=== PATIENT | female | born 1995 | race Caucasian/White ===

== ENCOUNTER 2021-03-25 11:22 | Emergency (ER) | payer OTHER ==
[~2021-03-25] VITALS: Ht 157.5 cm; Wt 62.1 kg
[2021-03-25 11:34] VITALS: BP 118/75
[2021-03-25] MEDS ORDERED: oxyCODONE/APAP 5/325 MG 1 TAB TAB PO ONE (12:05)
--- NOTE | 2021-03-25 12:31 | NUR ---
PT TAKEN TO US VIA W/C
[2021-03-25 12:38] LABS: BASOPHILS # (AUTO) 0.6 K/uL (0.00-0.22); EOSINOPHILS % (AUTO) 0.5 % (0.0-4.0); HEMATOCRIT 42.2 % (36-48); HEMOGLOBIN 14.4 g/dL (12.0-16.0); LYMPHOCYTES % (AUTO) 14.2 % (20.5-51.1); MEAN CORPUSCULAR HEMOGLOBIN 31 pg (27-31); MEAN CORPUSCULAR HGB CONC 34 g/dL (33-37); MEAN CORPUSCULAR VOLUME 90.7 fL (80-94); MONOCYTES # (AUTO) 0.5 K/uL (0.8-1.0); MONOCYTES % (AUTO) 7.1 % (1.7-9.3); NEUTROPHILS % (AUTO) 70.3 % (42.2-75.2); PLATELET COUNT (AUTO) 323 K/uL (140-450); RED BLOOD CELL COUNT(AUTO) 4.65 MIL/uL (4.20-5.40); RED CELL DISTRIBUTION WIDTH 12.6 % (11.6-13.7); WHITE BLOOD COUNT (AUTO) 7.2 K/uL (4.8-10.8)
[2021-03-25 12:43] LABS: BASOPHILS % (AUTO) 7.9 % (0.0-2.0)
[2021-03-25] MEDS ORDERED: traMADol 50 MG TAB PO ONE (13:05)
[2021-03-25 13:07] LABS: ALBUMIN 3.9 g/dL (3.4-5.0); CREATININE 0.8 mg/dL (0.6-1.3); POTASSIUM 3.4 mmol/L (3.5-5.1)
--- NOTE | 2021-03-25 13:25 | NUR ---
PT CAN'T PROVIDE URINE AT THIS TIME.
[2021-03-25 13:34] LABS: ANION GAP 16.3 (8-16); CARBON DIOXIDE 24.1 mmol/L (21-32); TOTAL BILIRUBIN 0.5 mg/dL (0.0-1.0)
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
[2021-03-25] MEDS ORDERED: DOCU250S85 PO (14:53)
--- NOTE | 2021-03-25 15:52 | NUR ---
REPORTED TO [facility]: [facility].
--- NOTE | 2021-03-25 15:52 | NUR ---
Shital alvarado in [facility] - 03/25/21 at 1634 by [email or web address] REPORTED TO S[place]: PD [facility].
--- NOTE | 2021-03-25 16:33 | NUR ---
[place] PD AT TRIAGE ROOM.
[2021-03-25 17:27] LABS: APPEARANCE,URINE CLEAR (CLEAR); BILIRUBIN,URINE NEGATIVE (NEGATIVE); BLOOD, URINE NEGATIVE (NEGATIVE); COLOR,URINE YELLOW (YELLOW); LEUKOCYTE ESTERASE ,URINE 3+ (NEGATIVE); NITRITE, URINE POSITIVE (NEGATIVE); PH,URINE 7.5 (5.0-9.0); UGLUCOSE NEGATIVE (NEGATIVE)
[2021-03-25 17:38] LABS: WBC,URINE 60-80 /HPF (0-5)
[2021-03-25 17:58] VITALS: BP 103/62
[2021-03-25] MEDS ORDERED: NITR100C7 PO (17:58)
--- NOTE | 2021-03-25 17:58 | NUR ---
Patient discharged with v/s stable. Written and verbal after care instructions ABOUT UTI AND ABDOMINAL PAIN given and explained. Patient alert, oriented and verbalized understanding of instructions. Wheel Chair Assisted with to car. All questions addressed prior to discharge. ID band removed. Patient advised to follow up with PMD. Rx of MACROBID AND DOCUSATE SODIUM given. Patient educated on indication of medication including possible reaction and side effects. Opportunity to ask questions provided and answered.
== END 2021-03-25 17:58 | disposition home or self-care (01) ==
LOC: MED 11:22
DX: K59.00 Constipation, unspecified (principal); R07.81 Pleurodynia; R51.9 Headache, unspecified; Z88.5 Allergy status to narcotic agent; Y04.2XXA Assault by strike against or bumped into by another person, initial encounter; Y93.89 Activity, other specified; Y92.89 Other specified places as the place of occurrence of the external cause; Y99.8 Other external cause status
CPT/HCPCS: 36415; 74022; 76700; 80053; 81001; 84702; 85025; 87086; 99285; Q0092